=== PATIENT | female | born 1980 | race Caucasian/White ===

== ENCOUNTER 2017-09-10 15:25 | Emergency (ER) | payer BC ==
[2017-09-10 16:00] VITALS: BP 137/88
--- NOTE | 2017-09-10 16:17 | UC ---
Throat Pain/Nasal Cb HPI - HPI Summary HPI Summary: 37 y/o female presents to the urgent care c/o sore throat since Wednesday. Pt reports symptoms started w/ nasal congestion w/ yellowish discharge for the past week. +PND and now has worsen w/ brownish nasal discharge. Pt has Hx of sinusitis and now has developed sore throat. Pain w/ swallowing and COX is 8/10. Pt denies fever, neck pain, abdominal pain, chest pain, N/V/D - History of Current Complaint Chief Complaint: UCGeneralIllness Stated Complaint: SORE THROAT Time Seen by Provider: 09/10/17 16:15 Hx Obtained From: Patient Hx Last Menstrual Period: 08/29/17 ?: No Onset/Duration: Gradual Onset, Lasting Days - 4 days, Still Present, Worse Since - 3 days Severity: Moderate Pain Intensity: 8 Pain Scale Used: 0-10 Numeric Cough: Nonproductive Associated Signs & Symptoms: Positive: Dysphagia, Sinus Discomfort, Nasal Discharge - Epiglottits Risk Factors Epiglottis Risk Factors: Negative - Allergies/Home Medications Allergies/Adverse Reactions: Allergies Allergy/AdvReac Type Severity Reaction Status Date / Time amoxicillin Allergy Hives Verified 09/10/17 16:00 Home Medications: Home Medications DULoxetine DR CAP* [Cymbalta CAP*] 20 mg PO DAILY 09/10/17 [History Confirmed ] Hydrochlorothiazide TAB* [Hydrodiuril TAB*] 25 mg PO DAILY 09/10/17 [History Confirmed 09/10/17] PMH/Surg Hx/FS Hx/Imm Hx Previously Healthy: Yes Cardiovascular History: Hypertension - Surgical History Surgical History: Yes Surgery Procedure, Year, and Place: foot surgery. foreign body removal from foot. breast reduction. hand surgery - Family History Known Family History: Positive: Cardiac Disease, Hypertension, Diabetes - Social History Occupation: Employed Full-time Lives: With Family Alcohol Use: Occasionally Substance Use Type: None Smoking Status (MU): Never Smoked Tobacco Review of Systems Constitutional: Negative Skin: Negative Eyes: Negative ENT: Sore Throat, Nasal Discharge, Sinus Congestion, Sinus Pain/Tenderness Respiratory: Cough - dry Cardiovascular: Negative Gastrointestinal: Negative Genitourinary: Negative Motor: Negative Neurovascular: Negative Musculoskeletal: Negative Neurological: Headache Psychological: Negative Is Patient Immunocompromised?: No All Other Systems Reviewed And Are Negative: Yes Physical Exam - Summary Physical Exam Summary: Vitals: reviewed General: Well developed, well-nourished female patient with NAD. Head and face: Normocephalic and atraumatic, Positive tenderness over the frontal and maxillary sinuses.. Eyes: PERRLA, EOMI x 2. Normal conjunctiva. No eye discharge. ENT: Ears and TM with normal limits. Nose: edematous and erythematous nasal mucosa with with yellowish discharge and erythematous mucosa. Pharynx with mild erythema, no exudate. +PND yellowish Neck: Supple, no JVD, no carotid bruits and no lymphadenopathy. Lungs: clear, no rales, no rhonchi, no wheezes. CVS: RRR, S1 and S2 present no murmurs or gallops appreciated. Abdomen: soft nontender with positive bowel sounds. Extremities: no edema noted. Neuro: WNL. Skin: warm and dry Triage Information Reviewed: Yes Vital Signs: Initial Vital Signs Temp 99.4 F 09/10/17 15:52 Pulse 84 09/10/17 15:52 Resp 16 09/10/17 15:52 BP 137/88 09/10/17 15:52 Pulse Ox 100 09/10/17 15:52 Throat Pain/Nasal Course/Dx - Course Course Of Treatment: 37 y/o female presents to the urgent care c/o sore throat since Wednesday09/08/2017. Pt reports symptoms started w/ nasal congestion w/ yellowish discharge for the past week. +PND and now has worsen w/ brownish nasal discharge. Pt has Hx of sinusitis and now has developed sore throat. Pain w/ swallowing and COX is 8/10. Pt denies fever, neck pain, abdominal pain, chest pain, N/V/D. Hx obtained. Pt w/ acute bacterial sinusitis on examination. Pt with 1 week of symptoms getting worse. Pt PCn allergic, Pt Rx Doxycycline PO and flonase nasal spray. Discharge instructions explained to Pt. Advised to Return to the clinic or PCP if symptoms do not improve.Pt understood and agreed with plan of care. - Differential Dx/Diagnosis Differential Diagnosis/HQI/PQRI: Influenza, Laryngitis, Otitis Media, Pharyngitis, Tonsillitis, URI Provider Diagnoses: 1- Acute bacterial sinusitis Discharge - Sign-Out/Discharge Documenting (check all that apply): Discharge/Admit/Transfer - D/c home - Discharge Plan Condition: Stable Disposition: HOME Prescriptions: DOXYcycline CAP(*) [DOXYcycline 100MG CAP(*)] 100 mg PO BID #20 cap Fluticasone NASAL SPRAY 50MCG* [Flonase NASAL SPRAY 50MCG*] 2 spray BOTH NARES DAILY #1 btl Patient Education Materials: Sinusitis (ED) Referrals: Kortney Pruitt PA [Primary Care Provider] - 1 Week Additional Instructions: 1- Please increase fluid intake and rest. take full course of antibiotic to avoid resistance 2-Use Flonase as directed to help drain fluid. Also buy saline drops to clear sinuses 3-Return to the clinic or PCP in 1 week if symptoms do not improve for further management and treatment - Billing Disposition and Condition Condition: STABLE Disposition: HOME
== END 2017-09-10 16:52 | disposition home or self-care (01) ==
LOC: UCCORT 15:25
DX: J01.90 Acute sinusitis, unspecified (principal); J02.9 Acute pharyngitis, unspecified; I10 Essential (primary) hypertension; Z88.0 Allergy status to penicillin
CPT/HCPCS: 87651; 99202; G0463

== ENCOUNTER 2017-10-19 18:33 | Emergency (ER) | payer BC ==
[2017-10-19 19:03] VITALS: BP 147/88
[2017-10-19] MEDS ORDERED: Albuterol 2.5 MG/3 ML NEB.SOL* (0.083%) INH ONE (19:49)
[2017-10-19] MEDS ORDERED: predniSONE TAB* 20 MG PO ONE (19:49)
--- NOTE | 2017-10-19 19:49 | UC ---
General HPI - HPI Summary HPI Summary: Patient is complaining of a 6 day history of cough and chest congestion. She notes that the mucus is so thick she can't raise it. She completed A course of antibiotics for a sinus infection. She finished that in the beginning of September. She was fine until 6 days ago. She feels that the sinus infection with into her chest. She admits to some shortness of breath. She denies fever or chills. She denies chest pain. She does have some shortness of breath but no history of asthma or emphysema. She has been self treating with Mucinex and an albuterol inhaler. - History of Current Complaint Chief Complaint: UCRespiratory Stated Complaint: COUGH CONGESTION Time Seen by Provider: 10/19/17 19:43 Hx Obtained From: Patient Hx Last Menstrual Period: 10/06/17, mirena IUD Onset/Duration: Gradual Onset Timing: Constant Pain Intensity: 0 Aggravating: nothing Alleviating: nothing Associated Signs & Symptoms: Positive: Cough, SOB - Allergy/Home Medications Allergies/Adverse Reactions: Allergies Allergy/AdvReac Type Severity Reaction Status Date / Time amoxicillin Allergy Hives Verified 10/19/17 18:58 Home Medications: Home Medications Ibuprofen TAB* [Motrin TAB* 600 MG] 600 mg PO Q6H PRN 10/19/17 [History Confirmed 10/19/17] PMH/Surg Hx/FS Hx/Imm Hx - Additional Past Medical History Additional PMH: sinusitis Cardiovascular History: Hypertension - Surgical History Surgical History: Yes Surgery Procedure, Year, and Place: foot surgery. foreign body removal from foot. breast reduction. hand surgery - Family History Known Family History: Positive: Cardiac Disease, Hypertension, Diabetes - Social History Occupation: Employed Full-time Alcohol Use: Occasionally Substance Use Type: None Smoking Status (MU): Never Smoked Tobacco - Immunization History Vaccination Up to Date: Yes Review of Systems Constitutional: Negative Skin: Negative Eyes: Negative ENT: Negative Respiratory: Shortness Of Breath, Cough Cardiovascular: Negative Gastrointestinal: Negative Genitourinary: Negative Motor: Negative Neurovascular: Negative Musculoskeletal: Negative Neurological: Negative Psychological: Negative Is Patient Immunocompromised?: No All Other Systems Reviewed And Are Negative: Yes Physical Exam Triage Information Reviewed: Yes Appearance: Well-Appearing Vital Signs: Initial Vital Signs Temp 98 F 10/19/17 18:55 Pulse 92 10/19/17 18:55 Resp 18 10/19/17 18:55 BP 147/88 10/19/17 18:55 Pulse Ox 99 10/19/17 18:55 Eyes: Positive: Conjunctiva Clear ENT: Positive: Pharynx normal - The, TMs normal. Negative: Nasal congestion, Nasal drainage Neck: Positive: Supple, Nontender, No Lymphadenopathy Respiratory: Positive: Lungs clear, No respiratory distress, Decreased breath sounds, Other: - bronchospastic cough Cardiovascular: Positive: RRR, No Murmur Abdomen Description: Positive: Nontender, No Organomegaly, Soft Musculoskeletal: Positive: ROM Intact Neurological: Positive: Alert Psychological: Positive: Age Appropriate Behavior Skin Exam: Normal Re-Evaluation - Re-Evaluation First Eval Re-Evaluation Time: 20:32 Change: Improved - LESS COUGH, BETTER AERATION. Course/Dx - Course Course Of Treatment: BP elevated but hx tx HTN. nothing to suggest bacterial infection. wiil tx po steroid and albuterol mdi. close f/u advised. - Differential Dx - Multi-Symptom Provider Diagnoses: COUGH. BRONCHOSPASM Discharge - Sign-Out/Discharge Documenting (check all that apply): Discharge/Admit/Transfer - Discharge Plan Condition: Improved Disposition: HOME Prescriptions: predniSONE TAB* [Deltasone 20 MG TAB*] 40 mg PO DAILY 4 Days #8 tab Patient Education Materials: Bronchospasm (ED), Acute Cough (ED) Referrals: Kortney Pruitt PA [Primary Care Provider] - 5 Days Additional Instructions: USE ALBUTEROL INHALER 2 PUFFS EVERY 6 HOURS - Billing Disposition and Condition Condition: IMPROVED Disposition: Home
== END 2017-10-19 20:46 | disposition home or self-care (01) ==
LOC: UCCORT 18:33
DX: R05 Cough (principal); I10 Essential (primary) hypertension; Z88.0 Allergy status to penicillin; J98.01 Acute bronchospasm
CPT/HCPCS: 99212; G0463; J7512

== ENCOUNTER 2018-10-24 11:08 | Emergency (ER) | payer BC ==
[2018-10-24 11:25] VITALS: BP 129/89
--- NOTE | 2018-10-24 11:40 | UC ---
Skin Complaint HPI - HPI Summary HPI Summary: Pt presents with c/o sudden onset of increased redness and tenderness to right posterior right upper arm that began 3 days ago. Pt had hx of known "lump/ lipoma" at painful site. Pt reports that she has been going to frequent sporting events every weekend to watch daughter and has been sitting in bleachers in hot/warm environments - History of Current Complaint Chief Complaint: UCSkin Time Seen by Provider: 10/24/18 11:33 Stated Complaint: SKIN COMPLAINT Hx Obtained From: Patient Hx Last Menstrual Period: IUD.. no periods ?: No Onset/Duration: Gradual Onset, Lasting Days, Still Present, Worse Since - onset Skin Exposure Onset/Duration: Days Ago - 3 Timing: Constant Onset Severity: Mild Current Severity: Moderate Pain Intensity: 0 Location: Discrete - right upper posterior arm Character: Swelling, Redness, Raised, Painful Aggravating Factor(s): Touch Alleviating Factor(s): Unknown Associated Signs & Symptoms: Positive: Tenderness - Allergy/Home Medications Allergies/Adverse Reactions: Allergies Allergy/AdvReac Type Severity Reaction Status Date / Time amoxicillin Allergy Hives Verified 10/24/18 11:26 Home Medications: Home Medications Melatonin 5 mg PO DAILY 10/24/18 [History Confirmed 10/24/18] PMH/Surg Hx/FS Hx/Imm Hx Previously Healthy: Yes - Surgical History Surgical History: Yes Surgery Procedure, Year, and Place: foot surgery. foreign body removal from foot. breast reduction. hand surgery - Family History Known Family History: Positive: Cardiac Disease, Hypertension, Diabetes - Social History Occupation: Employed Full-time Lives: With Family Alcohol Use: Occasionally Substance Use Type: None Smoking Status (MU): Never Smoked Tobacco Have You Smoked in the Last Year: No - Immunization History Vaccination Up to Date: Yes Review of Systems All Other Systems Reviewed And Are Negative: Yes Constitutional: Positive: Negative Skin: Positive: Other - erythema, tender mass right upper posterior arm Eyes: Positive: Negative ENT: Positive: Negative Respiratory: Positive: Negative Cardiovascular: Positive: Negative Gastrointestinal: Positive: Negative Genitourinary: Positive: Negative Motor: Positive: Negative Neurovascular: Positive: Negative Musculoskeletal: Positive: Myalgia - at tender mass site Neurological: Positive: Negative Psychological: Positive: Negative Is Patient Immunocompromised?: No Physical Exam Triage Information Reviewed: Yes Appearance: Well-Appearing Vital Signs: Initial Vital Signs Temp 98.8 F 10/24/18 11:20 Pulse 78 10/24/18 11:20 Resp 18 10/24/18 11:20 BP 129/89 10/24/18 11:20 Pulse Ox 98 10/24/18 11:20 Vital Signs Reviewed: Yes Eye Exam: Normal ENT Exam: Normal ENT: Positive: Hearing grossly normal Dental Exam: Normal Neck exam: Normal Respiratory Exam: Normal Cardiovascular Exam: Normal Musculoskeletal Exam: Normal Neurological Exam: Normal Psychological Exam: Normal Skin Exam: Other - 3cm X 3 cm , firm, tender moveable mass right upper posterior arm Course/Dx - Course Course Of Treatment: I discussed with the patient sun sensitivity with antibiotic use, pt verbalized understanding and agreed to plan of care. - Differential Diagnoses - Skin Complaint Differential Diagnoses: Abscess, Cellulitis - Diagnoses Provider Diagnosis: Abscess, Infection Discharge - Sign-Out/Discharge Documenting (check all that apply): Patient Departure All imaging exams completed and their final reports reviewed: No Studies - Discharge Plan Condition: Stable Disposition: HOME Prescriptions: Sulfamethox/Trimethoprim DS* [Bactrim DS 800/160 TAB*] 1 tab PO Q12H #20 tab Patient Education Materials: Abscess (ED), Warm Compress or Soak (ED) Referrals: Lexie Wolfe MD [Medical Doctor] - If Needed Kortney Pruitt PA [Primary Care Provider] - If Needed Additional Instructions: Please follow up with your PCP as needed. We have provided you with a referral to a general surgeon if needed. - Billing Disposition and Condition Condition: STABLE Disposition: Home - Attestation Statements Provider Attestation: I was available for consult. This patient was seen by the [facility]. The patient was not presented to, seen by, or examined by me. -Mason
== END 2018-10-24 11:51 | disposition home or self-care (01) ==
LOC: UCCORT 11:08
DX: L02.413 Cutaneous abscess of right upper limb (principal); Z88.0 Allergy status to penicillin
CPT/HCPCS: 99212; G0463

== ENCOUNTER 2019-05-03 15:45 | Emergency (ER) | payer BC ==
[2019-05-03 15:54] VITALS: BP 148/94
[2019-05-03 16:08] LABS: Influenza B Molecular POSITIVE (Negative)
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
== END 2019-05-03 16:43 | disposition home or self-care (01) ==
LOC: UCCORT 15:45
DX: J10.1 Influenza due to other identified influenza virus with other respiratory manifestations (principal); Z88.0 Allergy status to penicillin
CPT/HCPCS: 99211; G0463